=== PATIENT | female | born 1970 | race Caucasian/White ===

== ENCOUNTER 2023-04-21 13:03 | Emergency (ER) | payer BC, SELFPAY ==
[2023-04-21 13:09] VITALS: BP 112/75; PULSE 72; RESP 20; TEMP 36.2; O2SAT 97; BMI 25.8
--- NOTE | 2023-04-21 13:32 | CRLHL7_ITS ---
For Patients: As a result of the Century Cures Act, medical imaging exams and procedure reports are released immediately into your electronic medical record. You may view this report before your referring provider. If you have questions, please contact your health care provider. INDICATION: COUGH TECHNIQUE: Chest 1 views. COMPARISON: May 23, 2019 FINDINGS: Cardiovascular and mediastinum: Heart size and vasculature are normal in caliber and appearance. Lungs and pleural spaces: Lungs are clear. No sign of infiltrate. No sign of pleural effusion. No pneumothorax. Bones and soft tissues: No significant findings. IMPRESSION: No evidence of acute cardiopulmonary process. Dictated by Michele Christy MD @ 04/21/2023 3:33:01 PM (Electronically Signed)
--- NOTE | 2023-04-21 13:33 | ED.GENADULT ---
HPI - General Adult General Chief complaint: Cough Stated complaint: Sore throat, tightness in chest Time Seen by Provider: 04/21/23 13:05 History of Present Illness HPI narrative: Patient is a 52 year white female nonsmoker who has not had a history of pneumonia or chronic lung disease who presents with a cough scratchy throat over the last week. She feels it is getting worse her cough has been harsh and dry. Patient denies chest pain, does state when she coughs she feels somewhat short of breath. No leg swelling edema no bleeding or clotting problems. She has been generally healthy other than some allergies and depression and migraines. She also takes pantoprazole for stomach issues. Her O2 sat is excellent at 97% on her she is afebrile Related Data Home Medications Medication Instructions Recorded Confirmed cholecalciferol (vitamin D3) 25 25 mcg PO DAILY 04/21/23 04/21/23 mcg (1,000 unit) tablet cyclobenzaprine 5 mg tablet 5 mg PO BID PRN muscle spasm 04/21/23 04/21/23 escitalopram oxalate 20 mg tablet 20 mg PO DAILY 04/21/23 04/21/23 fluticasone propionate 50 1 spray intranasal DAILY 04/21/23 04/21/23 mcg/actuation nasal spray,suspension pantoprazole 40 mg tablet,delayed 40 mg PO DAILY 04/21/23 04/21/23 release sumatriptan succinate 50 mg tablet mg PO 04/21/23 Previous Rx's Medication Instructions Recorded doxycycline hyclate 100 mg capsule 100 mg PO BID 7 days #14 caps 04/21/23 methylprednisolone 4 mg tablets in See Rx Instructions PO .COMPLEX 04/21/23 a dose pack (Medrol (Christo)) #21 ea Allergies Allergy/AdvReac Type Severity Reaction Status Date / Time tramadol Allergy Verified 04/21/23 13:08 Review of Systems Status of ROS: Reports: 6 or more systems reviewed and unremarkable except as noted in History and below PFSH PFS Social History Smoking Status: Never smoker Do you use any of these nicotine containing products: None Second hand tobacco smoke exposure: Yes How often do you have a drink containing alcohol: never How often do you have six or more drinks on one occasion: Never AUDIT-C Alcohol total score: 0 Non-prescribed substance use: denies use service: No Exam Narrative: Exam Narrative: Objective: Vital signs unremarkable and within normal limits, no fever, O2 sat 97% on room air HEENT is unremarkable Neck is supple Chest clear no rales or wheezing preps to slightly diminished air exchange at the lung bases Pulses regula Neurologic is nonfocal, good peripheral perfusion noted. Const: Vital Signs, click to edit/add: Vital Signs - 24 hr 04/21/23 13:09 04/21/23 14:18 Temperature 97.1 F L Pulse Rate [Pulse Oximeter] 72 Respiratory Rate 20 16 Blood Pressure [Ri t Upper Arm] 112/75 Pulse Oximetry 97 97 Oxygen Delivery Me thod Room Air Course Vital Signs Vital signs: Initial Vital Signs Temperature 97.1 F L 04/21/23 13:09 Temperature Source Temporal Artery Scan 04/21/23 13:09 Pulse Rate 72 04/21/23 13:09 Pulse Rhythm Regular 04/21/23 13:09 Pulse Strength 3+ Normal 04/21/23 13:09 Respiratory Rate 20 04/21/23 13:09 Blood Pressure 112/75 04/21/23 13:09 Blood Pressure Mean 87 04/21/23 13:09 Blood Pressure Position Sitting 04/21/23 13:09 Pulse Oximetry 97 04/21/23 13:09 Oxygen Delivery Method Room Air 04/21/23 13:09 Vital Signs Temperature 97.1 F L 04/21/23 13:09 Pulse Rate 72 04/21/23 13:09 Respiratory Rate 20 04/21/23 13:09 Blood Pressure 112/75 04/21/23 13:09 Pulse Oximetry 97 04/21/23 13:09 Oxygen Delivery Method Room Air 04/21/23 13:09 Temperature 97.1 F L 04/21/23 13:09 Pulse Rate 72 04/21/23 13:09 Respiratory Rate 16 04/21/23 14:18 Blood Pressure 112/75 04/21/23 13:09 Pulse Oximetry 97 04/21/23 14:18 Oxygen Delivery Method Room Air 04/21/23 13:09 Medical Decision Making MDM Narrative Medical decision making narrative: [age] year white female without chronic lung disease who presents with 1 week history of cough chest congestion dry in nature. At this point the patient I think deserves a chest x-ray, check the viral studies. Depending on the results disposition planning. Lab Data Labs: Lab Results 04/21/23 Range/Units 13:16 SARS-CoV-2 (PCR) Negative SARS-CoV-2 (Negative) Influenza Type A (PCR) Negative PCR FLU A (Negative) Influenza Type B (PCR) Negative PCR FLU B (Negative) RSV (PCR) Negative PCR RSV (Negative) Discharge Plan Discharge Clinical Impression: Acute bronchitis Patient Disposition: Home, Self-Care Condition: Stable Additional Instructions: Recommend he try steroid medication as well as doxycycline because he had a cough over a week. Would recommend steam, fluids, symptomatic measures, recheck with regular doctor in 3-4 days as needed. Your viral studies for RSV/influenza/COVID were negative, her chest x-ray looked normal. Return to ED sooner problems concerns Activity Level: Light activity Discharge Diet: Regular Prescriptions: New methylprednisolone [Medrol (Christo)] 4 mg tablets,dose pack See Rx Instructions .ROUTE .COMPLEX Qty: 21 0RF Rx Instructions: orally per package directions doxycycline hyclate 100 mg capsule 100 mg PO BID 7 Days Qty: 14 0RF No Action sumatriptan succinate 50 mg tablet PO pantoprazole 40 mg tablet,delayed release (DR/EC) 40 mg PO DAILY fluticasone propionate 50 mcg/actuation spray,suspension 1 spray INTRANASAL DAILY escitalopram oxalate 20 mg tablet 20 mg PO DAILY cyclobenzaprine 5 mg tablet 5 mg PO BID PRN (Reason: muscle spasm) cholecalciferol (vitamin D3) 25 mcg (1,000 unit) tablet 25 mcg PO DAILY Follow Up/Referrals: Lorelei Vasquez MD [Staff Physician] - Stand Alone Forms: [email or web address] Info Instructions
[2023-04-21 14:01] LABS: PCR FLU A Negative PCR FLU A (Negative); PCR FLU B Negative PCR FLU B (Negative); PCR RSV Negative PCR RSV (Negative)
[2023-04-21 14:04] LABS: SARS PCR* Negative SARS-CoV-2 (Negative)
[2023-04-21 14:18] VITALS: RESP 16; O2SAT 97
== END 2023-04-21 14:19 | disposition home or self-care (01) ==
PROVIDERS: Emergency Provider Family Medicine; PCP Family Medicine
DX: J20.9 Acute bronchitis, unspecified (principal)
CPT/HCPCS: 71045; 87631; 99283; 99284

== ENCOUNTER 2023-06-25 13:36 | Emergency (ER) | payer BC, SELFPAY ==
[2023-06-25 13:51] VITALS: BP 109/77; PULSE 79; RESP 18; TEMP 36.4; O2SAT 99; BMI 25.8
--- NOTE | 2023-06-25 14:22 | ED.NURSE ---
patient was c/o pain in the upper arm wound so covered with 0.9% normal saline, 2x2, and wrapped with coban
--- NOTE | 2023-06-25 14:39 | ED_ITS ---
HPI - General Adult General Chief complaint: Laceration/Wound Stated complaint: lac left arm Time Seen by Provider: 06/25/23 14:11 Source: patient Mode of arrival: ambulatory Limitations: no limitations History of Present Illness HPI narrative: 52-year-old female presenting today status post a dog bite to the left upper arm. Denies other injury. States that it belongs to 1 of her neighbors, she does not know which 1. Dog did Not appear ill. She was playing with a ball when the dog try to get the ball. Related Data Home Medications Medication Instructions Recorded Confirmed cholecalciferol (vitamin D3) 25 25 mcg PO DAILY 04/21/23 04/21/23 mcg (1,000 unit) tablet cyclobenzaprine 5 mg tablet 5 mg PO BID PRN muscle spasm 04/21/23 04/21/23 escitalopram oxalate 20 mg tablet 20 mg PO DAILY 04/21/23 04/21/23 fluticasone propionate 50 1 spray intranasal DAILY 04/21/23 04/21/23 mcg/actuation nasal spray,suspension pantoprazole 40 mg tablet,delayed 40 mg PO DAILY 04/21/23 04/21/23 release sumatriptan succinate 50 mg tablet mg PO 04/21/23 Previous Rx's Medication Instructions Recorded doxycycline hyclate 100 mg capsule 100 mg PO BID 7 days #14 caps 04/21/23 methylprednisolone 4 mg tablets in See Rx Instructions PO .COMPLEX 04/21/23 a dose pack (Medrol (Christo)) #21 ea amoxicillin 875 mg-potassium 1 tab PO BID 7 days #14 tabs 06/25/23 clavulanate 125 mg tablet Allergies Allergy/AdvReac Type Severity Reaction Status Date / Time tramadol Allergy Verified 04/21/23 13:08 Review of Systems Status of ROS: Reports: 6 or more systems reviewed and unremarkable except as noted in History and below [facility] Social History Smoking Status: Smoker, status unknown Do you use any of these nicotine containing products: None Second hand tobacco smoke exposure: Yes How often do you have a drink containing alcohol: never How often do you have six or more drinks on one occasion: Never AUDIT-C Alcohol total score: 0 Non-prescribed substance use: denies use service: No Exam Narrative: Exam Narrative: Well-nourished well-developed patient in no acute distress. Alert and oriented. Answers questions appropriately. Mood and affect are appropriate. Thoughts are goal oriented and rational. No tangential or magical thinking noted. Patient speaks in full sentences without needing to catch her breath. HEENT: Normocephalic atraumatic. Pupils are equally round reactive to light. Extraocular muscles are intact. Conjunctivae are moist without any icterus noted. Moist mucous membranes. Extremities: Patient has an area of ecchymosis on the upper medial left extremity, just lateral to the axillary region, area of ecchymosis is a couple inches in diameter. At the center she has approximately a 2 cm gaping laceration that penetrates into the subcutaneous tissue, does not penetrate through the subcutaneous tissue. The remainder of the extremity is normal. Const: Vital Signs, click to edit/add: Vital Signs - 24 hr 06/25/23 13:51 Temperature 97.6 F Pulse Rate [Right Pulse Oximeter] 79 Respiratory Rate 18 Blood Pressure [Ri ght Upper Arm] 109/77 Pulse Oximetry 99 Oxygen Delivery Me thod Room Air Course Course ED Course: Area was anesthetized. Wound was irrigated and explored. Two sutures with 3-0 Ethilon applied. Vital Signs Vital signs: Initial Vital Signs Temperature 97.6 F 06/25/23 13:51 Temperature Source Temporal Artery Scan 06/25/23 13:51 Pulse Rate 79 06/25/23 13:51 Respiratory Rate 18 06/25/23 13:51 Blood Pressure 109/77 06/25/23 13:51 Blood Pressure Mean 87 06/25/23 13:51 Blood Pressure Position Sitting 06/25/23 13:51 Pulse Oximetry 99 06/25/23 13:51 Oxygen Delivery Method Room Air 06/25/23 13:51 Vital Signs Temperature 97.6 F 06/25/23 13:51 Pulse Rate 79 06/25/23 13:51 Respiratory Rate 18 06/25/23 13:51 Blood Pressure 109/77 06/25/23 13:51 Pulse Oximetry 99 06/25/23 13:51 Oxygen Delivery Method Room Air 06/25/23 13:51 Temperature 97.6 F 06/25/23 13:51 Pulse Rate 79 06/25/23 13:51 Respiratory Rate 18 06/25/23 13:51 Blood Pressure 109/77 06/25/23 13:51 Pulse Oximetry 99 06/25/23 13:51 Oxygen Delivery Method Room Air 06/25/23 13:51 Medical Decision Making MDM Narrative Medical decision making narrative: 52-year-old female status post dog bite. We discussed wound hygiene, signs symptoms of infection, reasons to return for follow-up. Suture removal in approximately 1 week. Will put her on antibiotics at this time and update her tetanus shot. Discharge Plan Discharge Clinical Impression: Laceration, Dog bite Patient Disposition: Home, Self-Care Condition: Stable Additional Instructions: Keep wound clean and dry. Okay to shower like you normally would. Take all antibiotics as prescribed- uptake them up and start today. If redness around the bite increases or spreads up or down the arm, return to the ER right away. Sutures should be removed in approximately 1 week in the clinic with your primary care provider. Prescriptions: New amoxicillin-pot clavulanate 875-125 mg tablet 1 tab PO BID 7 Days Qty: 14 0RF No Action sumatriptan succinate 50 mg tablet PO pantoprazole 40 mg tablet,delayed release (DR/EC) 40 mg PO DAILY fluticasone propionate 50 mcg/actuation spray,suspension 1 spray INTRANASAL DAILY escitalopram oxalate 20 mg tablet 20 mg PO DAILY cyclobenzaprine 5 mg tablet 5 mg PO BID PRN (Reason: muscle spasm) cholecalciferol (vitamin D3) 25 mcg (1,000 unit) tablet 25 mcg PO DAILY methylprednisolone [Medrol (Christo)] 4 mg tablets,dose pack See Rx Instructions .ROUTE .COMPLEX Qty: 21 0RF Rx Instructions: orally per package directions doxycycline hyclate 100 mg capsule 100 mg PO BID 7 Days Qty: 14 0RF Follow Up/Referrals: Penny Winston MD [Primary Care Provider] - Stand Alone Forms: [employer] Info Instructions
--- NOTE | 2023-06-25 14:41 | ED.NURSE ---
Pt reported later that wound is due to a dog bite. She states this dog was a neighborhood dog, but is unsure who the dog belongs to. She stated the dog is UTD on all vaccinations. Call placed to [place] [employer] to repot bite. PD stated they will send an officer to speak with patient.
[2023-06-25] MEDS: lidocaine HCL 2 % MULTIDOSE 20 ML VIAL INJECTION (14:44)
[2023-06-25] MEDS: TETANUS/DIPHTH/PERTUSSIS 0.5 ML SYRINGE IM (14:50)
--- NOTE | 2023-06-25 14:55 | ED.NURSE ---
PD in room with patient
== END 2023-06-25 15:00 | disposition home or self-care (01) ==
PROVIDERS: Emergency Provider Family Medicine; PCP Family Medicine
DX: S51.852A Open bite of left forearm, initial encounter (principal); W54.0XXA Bitten by dog, initial encounter; Z23 Encounter for immunization
CPT/HCPCS: 12001; 90471; 90715; 99283; 99284

== ENCOUNTER 2023-11-14 23:14 | Emergency (ER) | payer BC, SELFPAY ==
[2023-11-14 23:22] VITALS: BP 129/85; PULSE 70; RESP 16; TEMP 36.4; O2SAT 97; BMI 27.1
--- NOTE | 2023-11-14 23:35 | ED_ITS ---
HPI - General Adult General Chief complaint: Extremity Pain/Injury, Lower Stated complaint: Swollen L foot. Time Seen by Provider: 11/14/23 23:29 Source: patient Mode of arrival: ambulatory Limitations: no limitations History of Present Illness HPI narrative: 53-year-old female coming in today complaining of left foot pain. Pain started 2 days ago. Pain is located at the base of the big toe. Sometimes she feels sharp pain in the 2nd and 3rd toes as well but the majority of the discomfort is constant and again is at the base of the big toe. She states that it is swollen, she denies any redness. She states that it hurts to walk but she has been getting around doing her daily activities. She denies any fevers or chills. She states that she woke up on Wednesday morning and had this pain, denies any new physical activity or trauma on . Denies eating any red meter alcohol on . No nausea or vomiting. No pain in other joints or extremities. Related Data Home Medications ?Medication ?Instructions ?Recorded ?Confirmed cholecalciferol (vitamin D3) 25 25 mcg PO DAILY 04/21/23 04/21/23 mcg (1,000 unit) tablet cyclobenzaprine 5 mg tablet 5 mg PO BID PRN muscle spasm 04/21/23 04/21/23 escitalopram oxalate 20 mg tablet 20 mg PO DAILY 04/21/23 04/21/23 fluticasone propionate 50 1 spray intranasal DAILY 04/21/23 04/21/23 mcg/actuation nasal spray,suspension pantoprazole 40 mg tablet,delayed 40 mg PO DAILY 04/21/23 04/21/23 release sumatriptan succinate 50 mg tablet mg PO 04/21/23 Previous Rx's ?Medication ?Instructions ?Recorded doxycycline hyclate 100 mg capsule 100 mg PO BID 7 days #14 caps 04/21/23 methylprednisolone 4 mg tablets in See Rx Instructions PO .COMPLEX 04/21/23 a dose pack (Medrol (Christo)) #21 ea amoxicillin 875 mg-potassium 1 tab PO BID 7 days #14 tabs 06/25/23 clavulanate 125 mg tablet Allergies Allergy/AdvReac Type Severity Reaction Status Date / Time tramadol Allergy Verified 04/21/23 13:08 Review of Systems Status of ROS: Reports: 10 or more systems reviewed and unremarkable except as noted in History and below PFSH PFSH Social History Smoking Status: Smoker, status unknown Do you use any of these nicotine containing products: None Second hand tobacco smoke exposure: Yes How often do you have a drink containing alcohol: never How often do you have six or more drinks on one occasion: Never AUDIT-C Alcohol total score: 0 Non-prescribed substance use: denies use service: No Exam Narrative: Exam Narrative: Well-nourished well-developed patient in no acute distress. Alert and oriented. Answers questions appropriately. Mood and affect are appropriate. Thoughts are goal oriented and rational. No tangential or magical thinking noted. Patient speaks in full sentences without needing to catch her breath. HEENT: Normocephalic atraumatic. Pupils are equally round reactive to light. Extraocular muscles are intact. Conjunctivae are moist without any icterus noted. Moist mucous membranes. Extremities: Left foot does have swelling located at the base of the great toe. She has tenderness to palpation right in that area. It is not erythematous. She has no pain with palpation the remainder of the toes. She has no pain with palpation on the plantar surface of the forefoot, no pain at the arch or heel of the foot. No pain with motion at the ankle. Const: Vital Signs, click to edit/add: Vital Signs - 24 hr 11/14/23 23:22 Temperature 97.6 F Pulse Rate [Pulse Oximeter] 70 Respiratory Rate 16 Blood Pressure [Ri ght Upper Arm] 129/85 Pulse Oximetry 97 Oxygen Delivery Me thod Room Air Course Vital Signs Vital signs: Initial Vital Signs Temperature 97.6 F 11/14/23 23:22 Temperature Source Temporal Artery Scan 11/14/23 23:22 Pulse Rate 70 11/14/23 23:22 Respiratory Rate 16 11/14/23 23:22 Blood Pressure 129/85 11/14/23 23:22 Blood Pressure Mean 99 11/14/23 23:22 Blood Pressure Position Sitting 11/14/23 23:22 Pulse Oximetry 97 11/14/23 23:22 Oxygen Delivery Method Room Air 11/14/23 23:22 Vital Signs Temperature 97.6 F 11/14/23 23:22 Pulse Rate 70 11/14/23 23:22 Respiratory Rate 16 11/14/23 23:22 Blood Pressure 129/85 11/14/23 23:22 Pulse Oximetry 97 11/14/23 23:22 Oxygen Delivery Method Room Air 11/14/23 23:22 Temperature 97.6 F 11/14/23 23:22 Pulse Rate 70 11/14/23 23:22 Respiratory Rate 16 11/14/23 23:22 Blood Pressure 129/85 11/14/23 23:22 Pulse Oximetry 97 11/14/23 23:22 Oxygen Delivery Method Room Air 11/14/23 23:22 Medical Decision Making MDM Narrative Medical decision making narrative: 53-year-old female with pain of the foot, the base of the big toe. Differential diagnoses includes gout, arthritis, trauma, sprain. I am going to put her on indomethacin for the next several days to see if this makes a difference. I would like her to follow up with her primary care provider this coming week. She can certainly return to the ER if the area becomes red or she develops any systemic symptoms. Patient was in agreement and had no other questions. Discharge Plan Discharge Clinical Impression: Acute foot pain Patient Disposition: Home, Self-Care Condition: Stable Additional Instructions: Potential causes of your pain include arthritis, gout, sprain. At this time we will treat you with an anti-inflammatory that will treat pain and gout at the same time. If you feel like you are getting worse instead of better or if your foot becomes bright red, you should return to the ER. Otherwise I recommend you follow-up with your primary care provider this coming week. In the meantime elevate as much as possible throughout the day and ice as needed, do not apply ice directly to skin. Prescriptions: No Action sumatriptan succinate 50 mg tablet PO pantoprazole 40 mg tablet,delayed release (DR/EC) 40 mg PO DAILY fluticasone propionate 50 mcg/actuation spray,suspension 1 spray INTRANASAL DAILY escitalopram oxalate 20 mg tablet 20 mg PO DAILY cyclobenzaprine 5 mg tablet 5 mg PO BID PRN (Reason: muscle spasm) cholecalciferol (vitamin D3) 25 mcg (1,000 unit) tablet 25 mcg PO DAILY methylprednisolone [Medrol (Christo)] 4 mg tablets,dose pack See Rx Instructions .ROUTE .COMPLEX Qty: 21 0RF Rx Instructions: orally per package directions doxycycline hyclate 100 mg capsule 100 mg PO BID 7 Days Qty: 14 0RF amoxicillin-pot clavulanate 875-125 mg tablet 1 tab PO BID 7 Days Qty: 14 0RF Follow Up/Referrals: Penny Winston MD [Primary Care Provider] - Stand Alone Forms: [employer] Info Instructions
[2023-11-14] MEDS: KETOROLAC 30 MG/ML inj 60 MG IM (23:39)
== END 2023-11-14 23:50 | disposition home or self-care (01) ==
LOC: ED 23:41
PROVIDERS: Emergency Provider Family Medicine; PCP Family Medicine
DX: M79.672 Pain in left foot (principal)
CPT/HCPCS: 96372; 99283; J1885

== ENCOUNTER 2023-12-14 18:20 | Emergency (ER) | payer MEDICAID, SELFPAY ==
[2023-12-14 18:55] VITALS: BP 116/68; PULSE 70; RESP 18; TEMP 36.3; O2SAT 100
--- NOTE | 2023-12-14 19:57 | CRLHL7_ITS ---
For Patients: As a result of the Century Cures Act, medical imaging exams and procedure reports are released immediately into your electronic medical record. You may view this report before your referring provider. If you have questions, please contact your health care provider. INDICATION: Ankle Injury TECHNIQUE: Ankle radiograph 3 views left COMPARISON: 10/18/2022 FINDINGS: Bone: No acute fractures or aggressive bone lesions are identified. A small plantar calcaneal spur and small enthesophyte are noted. Joint: The ankle mortise joint and the visualized hindfoot joints are unremarkable in appearance. No significant ankle effusion is seen. Soft tissue: The Kager fat pad and the Achilles` tendon are normal in appearance. No radiopaque foreign bodies are seen. IMPRESSION: 1. No acute osseous injuries or abnormalities are noted. Dictated by Stepan Pat MD @ 12/14/2023 8:54:44 PM Dictated by: Stepan Pat MD @ 12/14/2023 20:54:48 (Electronically Signed)
--- NOTE | 2023-12-14 19:57 | ED.FALL ---
HPI - Fall General Chief Complaint: Fall/Minor Trauma Stated Complaint: fall on back - difficulty breathing Time Seen by Provider: 12/14/23 19:43 History of Present Illness HPI Narrative: This 53-year-old female comes in with injury to her left ankle that occurred yesterday and some discomfort in her upper back from a fall that occurred today. Yesterday she twisted her left ankle and has pain and swelling with ecchymosis on the lateral aspect. She has been wearing of brace around this ankle in continues to ambulate on it. Today she was walking her 2 dogs and because of her ankle injury she was not is steady. One of the dog saw a dock and ran pulling her backwards to the ground. She did not have loss of consciousness. She was able to get up and ambulate and comes in now perhaps 8 or 10 hours later because of left ankle pain and worsening pain in her upper back. Related Data Home Medications ?Medication ?Instructions ?Recorded ?Confirmed cholecalciferol (vitamin D3) 25 25 mcg PO DAILY 04/21/23 04/21/23 mcg (1,000 unit) tablet cyclobenzaprine 5 mg tablet 5 mg PO BID PRN muscle spasm 04/21/23 04/21/23 escitalopram oxalate 20 mg tablet 20 mg PO DAILY 04/21/23 04/21/23 fluticasone propionate 50 1 spray intranasal DAILY 04/21/23 04/21/23 mcg/actuation nasal spray,suspension pantoprazole 40 mg tablet,delayed 40 mg PO DAILY 04/21/23 04/21/23 release sumatriptan succinate 50 mg tablet mg PO 04/21/23 Previous Rx's ?Medication ?Instructions ?Recorded doxycycline hyclate 100 mg capsule 100 mg PO BID 7 days #14 caps 04/21/23 methylprednisolone 4 mg tablets in See Rx Instructions PO .COMPLEX 04/21/23 a dose pack (Medrol (Christo)) #21 ea amoxicillin 875 mg-potassium 1 tab PO BID 7 days #14 tabs 06/25/23 clavulanate 125 mg tablet indomethacin 50 mg capsule 50 mg PO TID #20 caps 11/15/23 Allergies Allergy/AdvReac Type Severity Reaction Status Date / Time tramadol Allergy Verified 04/21/23 13:08 Review of Systems Status of ROS: Reports: 10 or more systems reviewed and unremarkable except as noted in History and below Narrative: Constitutional: No fevers, no weight gain or loss. Eyes: No discharge. No vision changes. HENT: No congestion, no sore throat, no ear pain. Cardiovascular: No chest pain, no palpitations. Respiratory: No shortness of breath, no wheezes, no cough. Gastrointestinal: No abdominal pain, no vomiting, no diarrhea. Genitourinary: No dysuria, no hematuria. Musculoskeletal: Left ankle injury as described above. Skin: No rashes, no pruritis. Neurological: No dizziness, weakness, sensory change, speech change. Endo/Heme/Allergies: No bruising or bleeding. No polydipsia. Pysch: no suicidality, no anxiety, no insomnia. All other systems reviewed and are negative. [facility] Social History Smoking Status: Smoker, status unknown Do you use any of these nicotine containing products: None Second hand tobacco smoke exposure: Yes How often do you have a drink containing alcohol: never How often do you have six or more drinks on one occasion: Never AUDIT-C Alcohol total score: 0 Non-prescribed substance use: denies use service: No Exam Narrative: Exam Narrative: Constitutional: Well-developed, well-nourished, no acute distress. HEENT: Normocephalic, atraumatic. Neck: Normal range of motion. Nontender. Supple. No midline tenderness when palpating along the neck and the spine. Heart: Regular. No murmurs. Normal rate. Intact distal pulses. Lungs: Clear to auscultation. No chest discomfort. No wheezes, rhonchi, or rales. Abdomen: Normal bowel sounds. Nontender. No rebound tenderness. Genitalia: Deferred. Back: No midline tenderness. Normal range of motion. Extremities: Normal range of motion. Left ankle has swelling on the lateral aspect with ecchymosis. There is no joint effusion. Skin: Intact. No rash. Warm. No erythema or pallor. Neurologic: No altered sensation. No weakness. Alert and oriented. Psychiatric: No suicidality. No anxiety or depression. No insomnia. Nursing notes and vitals signs are reviewed. Const: Vital Signs, click to edit/add: Vital Signs - 24 hr 12/14/23 18:55 Temperature 97.4 F L Pulse Rate [Left P ulse Oximeter] 70 Respiratory Rate 18 Blood Pressure [Ri ght Upper Arm] 116/68 Pulse Oximetry 100 Oxygen Delivery Me thod Room Air Course Vital Signs Vital signs: Initial Vital Signs Temperature 97.4 F L 12/14/23 18:55 Temperature Source Temporal Artery Scan 12/14/23 18:55 Pulse Rate 70 12/14/23 18:55 Pulse Rhythm Regular 12/14/23 18:55 Respiratory Rate 18 12/14/23 18:55 Blood Pressure 116/68 12/14/23 18:55 Blood Pressure Mean 84 12/14/23 18:55 Blood Pressure Position Sitting 12/14/23 18:55 Pulse Oximetry 100 12/14/23 18:55 Oxygen Delivery Method Room Air 12/14/23 18:55 Vital Signs Temperature 97.4 F L 12/14/23 18:55 Pulse Rate 70 12/14/23 18:55 Respiratory Rate 18 12/14/23 18:55 Blood Pressure 116/68 12/14/23 18:55 Pulse Oximetry 100 12/14/23 18:55 Oxygen Delivery Method Room Air 12/14/23 18:55 Temperature 97.4 F L 12/14/23 18:55 Pulse Rate 70 12/14/23 18:55 Respiratory Rate 18 12/14/23 18:55 Blood Pressure 116/68 12/14/23 18:55 Pulse Oximetry 100 12/14/23 18:55 Oxygen Delivery Method Room Air 12/14/23 18:55 MDM - Fall MDM Narrative Medical decision making narrative: This 53-year-old female comes in with injury to her left ankle from yesterday and then a fall where she has some upper and mid back pain that occurred this morning. She arrives with normal vital signs. She has been ambulating on her ankle injury but does have swelling on the lateral malleolus with some ecchymosis. X-ray of the ankle is obtained and by my review shows no sign of fracture or dislocation. The patient has normal exam otherwise. She is complaining of some diffuse pain across her mid and upper back but does not have any abnormal exam findings and has no midline tenderness when palpating along the spine. Her lungs sound clear bilaterally and she has normal vital signs. The patient did receive an Tom wrap for her ankle and I did provide [facility] prescriptions for Toradol and Flexeril. She states that she has a cane that can not be used if needed. Discharge Plan Discharge Clinical Impression: Ankle sprain, Back contusion Patient Disposition: Home, Self-Care Condition: Stable Additional Instructions: Take medication as needed and indicated. Increase activity as tolerated. Follow up with MD return if worsening. Prescriptions: No Action sumatriptan succinate 50 mg tablet PO pantoprazole 40 mg tablet,delayed release (DR/EC) 40 mg PO DAILY fluticasone propionate 50 mcg/actuation spray,suspension 1 spray INTRANASAL DAILY escitalopram oxalate 20 mg tablet 20 mg PO DAILY cyclobenzaprine 5 mg tablet 5 mg PO BID PRN (Reason: muscle spasm) cholecalciferol (vitamin D3) 25 mcg (1,000 unit) tablet 25 mcg PO DAILY methylprednisolone [Medrol (Christo)] 4 mg tablets,dose pack See Rx Instructions .ROUTE .COMPLEX Qty: 21 0RF Rx Instructions: orally per package directions doxycycline hyclate 100 mg capsule 100 mg PO BID 7 Days Qty: 14 0RF amoxicillin-pot clavulanate 875-125 mg tablet 1 tab PO BID 7 Days Qty: 14 0RF indomethacin 50 mg capsule 50 mg PO TID Qty: 20 0RF Rx Instructions: administer with food or milk. Start taking 3 times per day and then wean off as pain improves. Follow Up/Referrals: Penny Winston MD [Primary Care Provider] - Stand Alone Forms: [employer] Info Instructions
== END 2023-12-14 21:49 | disposition home or self-care (01) ==
PROVIDERS: Emergency Provider Emergency Medicine Emergency Medical Services; PCP Family Medicine
DX: M25.572 Pain in left ankle and joints of left foot (principal); X50.1XXA Overexertion from prolonged static or awkward postures, initial encounter
CPT/HCPCS: 73610; 99283; 99284

== ENCOUNTER 2024-08-27 10:57 | Emergency (ER) | payer SELFPAY ==
[2024-08-27 11:06] VITALS: BP 150/85; PULSE 65; RESP 24; TEMP 36.1; O2SAT 97; BMI 25.8
[2024-08-27] MEDS: 0.9 % SODIUM CHLORIDE 1000 ml 1,000 ML 6000 ML IV (11:56)
[2024-08-27] MEDS: LORazepam 2 MG/ML inj 1 MG IVP (11:56)
[2024-08-27] MEDS: diphenhydrAMINE 50 MG/ML inj 25 MG IVP (11:57)
[2024-08-27] MEDS: METOCLOPRAMIDE HCL 10 MG in 0.9 % SODIUM CHLORIDE 100 ml 100 ML 306 MG IV (11:57)
[2024-08-27] MEDS: KETOROLAC 30 MG/ML inj IVP (11:57)
--- NOTE | 2024-08-27 11:57 | ED.GENADULT ---
HPI - General Adult General Chief complaint: Headache/Migraine Stated complaint: migraine Time Seen by Provider: 08/27/24 11:03 History of Present Illness HPI narrative: Patient is a 53-year-old female has had a longstanding history of migraines. She reports a lot of psychosocial stress as well. She has had no fevers chills but has had a headache the last couple of days. She reports that the top of her head. She is photophobic as per typical migraines. She reports she has had some stress significantly since she apparently had children taken away from her. She reports that she has felt shaky and that her arms have been slapping. She has no chest pain, breathing problem no thunderclap headache. No fevers as mention. She is allergic to tramadol. Related Data Home Medications ?Medication ?Instructions ?Recorded ?Confirmed cholecalciferol (vitamin D3) 25 25 mcg PO DAILY 04/21/23 04/21/23 mcg (1,000 unit) tablet cyclobenzaprine 5 mg tablet 5 mg PO BID PRN muscle spasm 04/21/23 04/21/23 escitalopram oxalate 20 mg tablet 20 mg PO DAILY 04/21/23 04/21/23 fluticasone propionate 50 1 spray intranasal DAILY 04/21/23 04/21/23 mcg/actuation nasal spray,suspension pantoprazole 40 mg tablet,delayed 40 mg PO DAILY 04/21/23 04/21/23 release sumatriptan succinate 50 mg tablet mg PO 04/21/23 Previous Rx's ?Medication ?Instructions ?Recorded doxycycline hyclate 100 mg capsule 100 mg PO BID 7 days #14 caps 04/21/23 methylprednisolone 4 mg tablets in See Rx Instructions PO .COMPLEX 04/21/23 a dose pack (Medrol (Christo)) #21 ea amoxicillin 875 mg-potassium 1 tab PO BID 7 days #14 tabs 06/25/23 clavulanate 125 mg tablet indomethacin 50 mg capsule 50 mg PO TID #20 caps 11/15/23 Allergies Allergy/AdvReac Type Severity Reaction Status Date / Time tramadol Allergy Verified 04/21/23 13:08 Review of Systems Status of ROS: Reports: 6 or more systems reviewed and unremarkable except as noted in History and below PFSH PFS Social History Smoking Status: Smoker, status unknown Do you use any of these nicotine containing products: None Second hand tobacco smoke exposure: Yes How often do you have a drink containing alcohol: never How often do you have six or more drinks on one occasion: Never AUDIT-C Alcohol total score: 0 Non-prescribed substance use: denies use service: No Exam Narrative: Exam Narrative: Objective: The patient is keeping her eyes closed, her vital signs look largely unremarkable and slightly hypertensive No facial asymmetry Unable to get her to remove her glasses and she has pupils are equal actual like reaction to light extraocular movements intact Neurologic in upper lower extremities grossly nonfocal she is moving all extremities in fact she actually is shaking and flapping her hands she is able to control this and stop the when she wishes. Neurologic is nonfocal normal strength sensation. Const: Vital Signs, click to edit/add: Vital Signs - 24 hr 08/27/24 11:06 Temperature 96.9 F L Pulse Rate [Left R adial] 65 Respiratory Rate 24 Blood Pressure [Ri ght Upper Arm] 150/85 H Pulse Oximetry 97 Oxygen Delivery Me thod Room Air Course Vital Signs Vital signs: Initial Vital Signs Temperature 96.9 F L 08/27/24 11:06 Temperature Source Temporal Artery Scan 08/27/24 11:06 Pulse Rate 65 08/27/24 11:06 Pulse Rhythm Regular 08/27/24 11:06 Respiratory Rate 24 08/27/24 11:06 Blood Pressure 150/85 H 08/27/24 11:06 Blood Pressure Mean 106 H 08/27/24 11:06 Pulse Oximetry 97 08/27/24 11:06 Oxygen Delivery Method Room Air 08/27/24 11:06 Vital Signs Temperature 96.9 F L 08/27/24 11:06 Pulse Rate 65 08/27/24 11:06 Respiratory Rate 24 08/27/24 11:06 Blood Pressure 150/85 H 08/27/24 11:06 Pulse Oximetry 97 08/27/24 11:06 Oxygen Delivery Method Room Air 08/27/24 11:06 Temperature 96.9 F L 08/27/24 11:06 Pulse Rate 65 08/27/24 11:06 Respiratory Rate 24 08/27/24 11:06 Blood Pressure 150/85 H 08/27/24 11:06 Pulse Oximetry 97 08/27/24 11:06 Oxygen Delivery Method Room Air 08/27/24 11:06 Medications Administered Medications: Discontinued Medications Generic Name Dose Route Start Last Admin Trade Name Aj PRN Reason Stop Dose Admin Diphenhydramine HCl 25 mg 08/27/24 11:34 08/27/24 11:57 Diphenhydramine 50 Mg/Ml Inj IVP 08/27/24 11:35 25 mg ONCE ONE Administration Sodium Chloride 1,000 mls @ 6,000 mls/hr 08/27/24 11:45 08/27/24 11:56 0.9 % Sodium Chloride 1000 Ml IV 08/27/24 11:54 6,000 mls/hr .Q10M [place] Administration Metoclopramide HCl 10 mg/ 102 mls @ 306 mls/hr 08/27/24 11:34 08/27/24 11:57 Sodium Chloride IV 08/27/24 11:35 306 mls/hr ONCE ONE Administration Ketorolac Tromethamine 30 mg 08/27/24 11:34 08/27/24 11:57 Ketorolac 30 Mg/Ml Inj IVP 08/27/24 11:35 30 mg ONCE ONE Administration Lorazepam 1 mg 08/27/24 11:34 08/27/24 11:56 Lorazepam 2 Mg/Ml Inj IVP 08/27/24 11:35 1 mg ONCE ONE Administration Medical Decision Making [facility] Narrative Medical decision making narrative: [age] white female with history of migraine headaches with significant psychosocial overlay, patient will get IV fluid, IV Ativan IV Toradol Reglan and Benadryl. Hopefully this will alleviate some of her symptoms and some of her anxiety that is clearly associated with her headache. She has had these multiple times in this is typical for her. Will do further workup pending her response. She is comfortable this plan. Discharge Plan Discharge Clinical Impression: Migraine, Anxiety Patient Disposition: Home w/ Parent or Adult Condition: Improved Additional Instructions: Fluids, rest, a refill your headache medicine for home, recheck with regular doctor as needed. Return as needed. Activity Level: Light activity Discharge Diet: Regular Prescriptions: No Action sumatriptan succinate 50 mg tablet PO pantoprazole 40 mg tablet,delayed release (DR/EC) 40 mg PO DAILY fluticasone propionate 50 mcg/actuation spray,suspension 1 spray INTRANASAL DAILY escitalopram oxalate 20 mg tablet 20 mg PO DAILY cyclobenzaprine 5 mg tablet 5 mg PO BID PRN (Reason: muscle spasm) cholecalciferol (vitamin D3) 25 mcg (1,000 unit) tablet 25 mcg PO DAILY methylprednisolone [Medrol (Christo)] 4 mg tablets,dose pack See Rx Instructions .ROUTE .COMPLEX Qty: 21 0RF Rx Instructions: orally per package directions doxycycline hyclate 100 mg capsule 100 mg PO BID 7 Days Qty: 14 0RF amoxicillin-pot clavulanate 875-125 mg tablet 1 tab PO BID 7 Days Qty: 14 0RF indomethacin 50 mg capsule 50 mg PO TID Qty: 20 0RF Rx Instructions: administer with food or milk. Start taking 3 times per day and then wean off as pain improves. Follow Up/Referrals: Penny Winston MD [Primary Care Provider] - Stand Alone Forms: [facility] Info Instructions
--- OUTSIDE RECORDS SUMMARY | 2024-08-27 12:03 | XMS_ITS | Clinical Summary ---
Author Organization [employer] [facility] Address [address] [place] [id number] Care Team Providers Care Voucher Clerk Name Role Phone Penny Winston MD Primary Care Provi debbie Allergies Active Allergy Reactions Criticality Noted Date Comments Tramadol Hives,Itching 05/22/2013 Medications medication order composer Sugar Merary twice daily 0 2 Active aspirin (ECOTRIN) 81 mg enteric coated tablet Take 1 Tablet (81 mg) by mouth once daily with a meal. 0 2 Active SUMAtriptan (IMITREX) 50 mg tabletIndications:M igraine syndrome TAKE 1 TABLET BY MOUTH AT ONSET OF HEADACHE NEEDED. MAY REPEAT EVERY 2 HOURS NEEDED. MAX DAILY DOSE IS 4 12 Tablet 3 4 Active sucralfate (CARAFATE) 1 gram tabletIndications:C hronic GERD Take 1 Tablet (1 g) by mouth four times daily before meals and at bedtime. 120 Tablet 4 Active fluticasone (50 mcg per actuation) nasal solution (FLONASE)Indication s:Chronic rhinosinusitis Inhale 2 Sprays to both nostrils once daily. 16 g 5 4 Active cyclobenzaprine (FLEXERIL) 5 mg tabletIndications:C hronic right SI joint pain Take 1 Tablet (5 mg) by mouth 2 times daily if needed for Muscle Spasm. 60 Tablet 5 4 Active cholecalciferol (VITAMIN D3) 1,000 unit tabletIndications:V itamin D deficiency Take 1 Tablet (1,000 units) by mouth once daily. 90 Tablet 3 4 Active escitalopram oxalate (LEXAPRO) 20 mg tabletIndications:D epression, unspecified depression type Take 1 Tablet (20 mg) by mouth once daily. 90 Tablet 3 4 Active pantoprazole (PROTONIX) 40 mg delayed-release tabletIndications:U pper GI bleeding Take 1 Tablet (40 mg) by mouth once daily. 90 Tablet 3 4 Active Active Problems Problem Noted Date Diagnosed Date Anxiety 09/24/2021 Depression 09/24/2021 Fatty infiltration of liver 09/24/2021 GERD (gastroesophageal reflux disease) 2 Vitamin D deficiency 09/24/2021 Hx of total hysterectomy wit h removal of both tubes and ovaries 09/24/2021 Premature menopause on HRT 09/24/2021 Cervical radiculopathy due to intervertebral dis c disorder 02/26/2015 Gastrointestinal hemorrhage Resolved Problems Problem Noted Date Diagnosed Date Resolved Date Tubal ligation status 09/24/20212022 Immunizations Immunization Administration Dates Next Due COVID-19 VACCINE SPIKEVAX (M ODERNA 50MCG/0.5ML) 12YO+ PFS 07/13/2023 Influenza, IIV4 07/13/2023,02/14/2021 Td, Preservative Free (age >= 7 Years) 6 Tdap 06/25/2023,09/17/2015 Social History Tobacco Use Types Packs/Day Years Used Date Smoking Tobacco: Passive Smo ke Exposure - Never Smoker Smokeless Tobacco: Never Tobacco Cessation:Counseling Given: Yes Alcohol Use Standard Drinks/Week Comments Not Currently 0 (1 standard drink = 0.6 oz pur e alcohol) PHQ-2 Answer Date Recorded PHQ-2 TOTAL SCORE 4 03/10/2023 Social Connections Answer Date Recorded Do you often feel lonely or isolated from those around you? 0 07/13/2023 Financial Resource Strain Answer Date R ecorded Difficulty of Paying Living Expenses 3 07/13/2023 Difficulty of Paying Living Expenses Not on file 07/13/2023 Food Insecurity Answer Date Recorded Do you worry your food will run out before you are able to buy more? 1 07/13/2023 Transportation Needs Answer Date Record ed Does lack of transportation keep you from medica l appointments? 1 07/13/2023 Does lack of transportation keep you from work, meetings or getting things that you need? 1 07/13/2023 Housing Stability Answer Date Recorded What is your housing situation today? 1 07/13/2023 Utilities Answer Date Recorded Do you have trouble paying f or utilities (for example, heat, electricity, water, phone)? 1 07/13/2023 Comments No Sex and Gender Information Value Date Recorded Sex Assigned at Not on file Legal Sex Female 1:18 PM LAST TRIMMER Gender Identity Not on file Sexual Orientation Not on file Obstetrics History Last Filed Vital Signs Vital Sign Reading Time Taken Comments Blood Pressure 108/68 07/13/2023 10:48 AM LAST TRIMMER Pulse 68 07/13/2023 10:48 AM LAST TRIMMER Temperature 36.7 C (98.1 F) 10/22/2022 7:38 AM CDT Respiratory Rate 14 07/13/2023 10:48 AM LAST TRIMMER Oxygen Saturation 97% 10/22/2022 7:38 AM CDT Inhaled Oxygen Concentration - - Weight 82.1 kg (181 lb) 07/13/2023 10:48 AM LAST TRIMMER Height 167.6 cm (5' 6) 10/22/2022 7:37 AM CDT Body Mass Index 29.21 10/22/2022 7:37 AM CDT Plan of Treatment Health Maintenance Due Date Last Done Comments HIV for age 15-65 1985 Hepatitis C screening for age 18-79 1988 Mammogram for age 45-75 10/22/2015 Pneumococcal series for age 50+ (1 of 1 - PCV) 2020 Zoster (shingles) series for age 50+ (1 of 2) 2020 BMI (ht and wt on same day) for age 18+ 03/13/2023 03/13/2022, 01/06/2022, 09/24/2021 COVID-19 vaccine series ( season) 2024 07/13/2023, 08/31/2020, 08/10/2020 Depression screening for age 12+ 03/10/2024 03/10/2023, 12/31/2022, 12/03/2021 Influenza Vaccine (Season Ended) 2025 07/13/19 24, 02/14/2021 Lipids for age 45-75 09/24/2026 09/24/2021 Colonoscopy through age 75 04/22/2032 04/22/2022 Tetanus booster 06/25/2033 06/25/2023, 08/23, 09/17/2015 Tdap Completed 06/25/2023, 09/17/2015 Procedures Procedure Name Priority Date/Time Associated Diagnosis Comments COLONOSCOPY 04/22/2022 12:33 PM LAST TRIMMER LIPID PANEL W REFLEX MEASURED LDL Routine 09/24/2021 11:44 AM CDT Chest pain on exertion Family history of early CAD from Last 3 Months or Most Recently Relevant to Health Maintenance Results * COLONOSCOPY (04/22/2022 12:33 PM LAST TRIMMER) 04/22/2022 12:3 3 PM LAST TRIMMER Narrative Transcriptions Brenda De Leon DO - 04/22/2022 5:46 PM CST Patient Name: Narda Mark Procedure Date: 04/22/2022 Gender: Female Date of : 1970 Admit Type: Ambulatory Procedure: Colonoscopy Proceduralist: Brenda De Leon MD Indications/Pre-Op Diagnosis: Gastrointestinal bleeding Medications: Propofol per Anesthesia, MonitoredAnesthesia Care Procedure Description: The patient had risks, benefits and alternatives explained to andgave informed consent. The patient had a stable cardiopulmonary status and judged an adequate candidate for conscious sedation. The endoscope -[id number] was passed through the anus andadvanced to the cecum, identified by appendiceal orifice and ileocecal valve.The colonoscopy was performed without difficulty. The patient toleratedthe procedure well. The quality of the bowel preparation was good. The ileocecal valve, appendiceal orifice, and rectum were photographed. Complications: No immediate complications. Estimated blood loss: Minimal. Estimated Blood Loss & Specimen: Estimated blood loss was minimal. Specimen collected - Yes and sent to Laboratory Findings: An area of moderately congested mucosa was found in the sigmoidcolon. This was biopsied with a cold forceps for histology. Verification of patient identification for the specimen was done. Estimated bloodloss was minimal. The exam was otherwise without abnormality. Skin tags were found on perianal exam. Impressions/Post-Op Diagnosis: - Congested mucosa in the sigmoid colon. Biopsied. - The examination was otherwise normal. - Perianal skin tags found on perianal exam. Recommendation: - Discharge patient to home (ambulatory). - Resume previous diet today. - Continue present medications. - Await pathology results. - Repeat colonoscopy in 5-10 years for surveillance based onpathology results. Brenda De Leon MD 04/22/2022 5:46:26 PM This report has been signed electronically. Note Initiated On: 04/22/2022 12:33 PM us Brenda De Leon DO PROCEDURE ORD Final Res ult * (ABNORMAL) LIPID PANEL W REFLEX MEASURED LDL (09/24/2021 11:44 AM CDT) CHOLESTEROL,TOTAL 204(H) 100 - 199 mg/dL 09/24/2021 12:33 PM T [facility] TRIGLYCERIDES 173(H) <150 mg/dL 09/24/2021 12:33 PM T [facility] HDL CHOLESTEROL 46 >40 mg/dL 12:33 PM T [facility] NON-HDL CHOLESTEROL 158(H) <145 mg/dl 09/24/2021 12:33 PM CDT [facility] CHOL/HDL RATIO 4.43 <4.50 09/24/2021 12:33 PM CDT [facility] LDL CHOLESTEROL 123 <=130 mg/dL 09/24/2021 12:33 PM T [facility] VLDL CHOLESTEROL 35(H) <=30 mg/dL 09/24/2021 12:33 PM CDT [facility] PROVIDER ORDERED STATUS RANDOM 09/24/2021 12:33 PM CDT [facility] Blood BLOOD SPECIMEN / Unknown Venipuncture / Unknown 09/24/2021 11:44 AM CDT 09/24/2021 11:45 AM CDT us Penny Winston MD CHEMISTRY Fin al Result [facility] [address] [place] [address] from Last 3 Months or Most Recently Relevant to Health Maintenance Insurance [facility] Care Teams Voucher Clerk Relationship Specialty Start Date End Date Penny Winston MD [address] [place] [address] PCP - General Family Practice 10/06/21
== END 2024-08-27 13:26 | disposition home or self-care (01) ==
PROVIDERS: Emergency Provider Family Medicine; PCP Family Medicine
DX: G43.909 Migraine, unspecified, not intractable, without status migrainosus (principal); F41.9 Anxiety disorder, unspecified
CPT/HCPCS: 96374; 96375; 99284; J1200; J1885; J2060; J2765; J7030

== ENCOUNTER 2025-01-16 00:44 | Emergency (ER) | payer OTHER, SELFPAY ==
--- OUTSIDE RECORDS SUMMARY | 2025-01-16 00:48 | XMS_ITS | Clinical Summary ---
Author Organization [employer] [facility] Address [address] [place] [address] Care Team Providers Care Tromper Name Role Phone Penny Winston MD Primary Care Provi debbie Allergies Active Allergy Reactions Criticality Noted Date Comments Tramadol Hives,Itching 05/22/2013 Medications medication order composer Sugar Merary twice daily 0 2 Active aspirin (ECOTRIN) 81 mg enteric coated tablet Take 1 Tablet (81 mg) by mouth once daily with a meal. 0 2 Active sucralfate (CARAFATE) 1 gram tabletIndications:C hronic GERD Take 1 Tablet (1 g) by mouth four times daily before meals and at bedtime. 120 Tablet 4 Active cholecalciferol (VITAMIN D3) 1,000 unit tabletIndications:V itamin D deficiency Take 1 Tablet (1,000 units) by mouth once daily. 90 Tablet 3 4 Active fluticasone (50 mcg per actuation) nasal solution (FLONASE)Indication s:Chronic rhinosinusitis Inhale 2 Sprays in both nostrils once daily. 16 g 5 5 Active SUMAtriptan (IMITREX) 50 mg tabletIndications:M igraine syndrome TAKE 1 TABLET BY MOUTH AT ONSET OF HEADACHE NEEDED. MAY REPEAT EVERY 2 HOURS NEEDED. MAX DAILY DOSE IS 4 12 Tablet 5 Active cyclobenzaprine (FLEXERIL) 5 mg tabletIndications:C hronic right SI joint pain Take 1 Tablet (5 mg) by mouth 2 times daily if needed for Muscle Spasm. 60 Tablet 5 Active escitalopram oxalate (LEXAPRO) 20 mg tabletIndications:D epression, unspecified depression type Take 1 Tablet (20 mg) by mouth once daily. 90 Tablet 5 Active pantoprazole (PROTONIX) 40 mg delayed-release tabletIndications:G astroesophageal reflux disease, unspecified whether esophagitis present Take 1 Tablet (40 mg) by mouth once daily. 90 Tablet 5 Active Active Problems Problem Noted Date Diagnosed Date Anxiety 09/24/2021 Depression 09/24/2021 Fatty infiltration of liver 09/24/2021 GERD (gastroesophageal reflux disease) Vitamin D deficiency 09/24/2021 Hx of total hysterectomy wit h removal of both tubes and ovaries 09/24/2021 Premature menopause on HRT 09/24/2021 Cervical radiculopathy due to intervertebral dis c disorder 02/26/2015 Gastrointestinal hemorrhage Resolved Problems Problem Noted Date Diagnosed Date Resolved Date Tubal ligation status 09/24/20212022 Encounters Date Type Department Care Team Description 12/08/2024 3:30 PM CDT Office Visit [address] [phone] Abby Cid MD Back Pain (lower back; been going on for a couple weeks; pain gets so bad that she gets sick to her stomach; sharp pain; feels a large knot; she states it feels like someone is squeezing onto her spine ); Medication Management (needs refills ) 12/08/2024 Travel 12/04/[address] [phone] Penny Winston MD Refill Request (Escitalopram, cyclobenzaprine, sumatriptan) from Last 3 Months Immunizations Immunization Administration Dates Next Due COVID-19 [...] Answer Date Recorded PHQ-2 TOTAL SCORE 4 12/08/2024 Social Connections Answer Date Recorded Do you [...] on file Legal Sex Female 1:18 PM FENCE BUILDER Gender Identity Not on file Sexual Orientation Not on file Occupation Industry Job Start Date Job End Date [employer] Not on file Not on file Not on file Obstetrics History Last Filed Vital Signs Vital Sign Reading Time Taken Comments Blood Pressure 124/72 12/08/2024 3:29 PM CDT Pulse 67 12/08/2024 3:29 PM CDT Temperature 36.7 C (98.1 F) 10/22/2022 7:38 AM CDT Respiratory Rate 14 07/13/2023 10:4 8 AM FENCE BUILDER Oxygen Saturation 98% 12/08/2024 3:29 PM CDT Inhaled Oxygen Concentration - - Weight 80.2 kg (176 lb 11.2 oz) 12/08/2024 3:29 PM CDT Height 167.6 cm (5' 6) 09/07/2024 8:58 AM CDT Body Mass Index 28.52 09/07/2024 8:58 AM CDT Plan of Treatment Upcoming Encounters Date Type Department Care Team (Late st Contact Info) Description 02/12/2025 2:25 PM CDT Office Visit [facility] [address] [place] [address] Penny Winston MD [address] [place] [address] Health Maintenance Due Date Last Done Comments HIV for age 15-65 1985 Hepatitis C screening for ag e 18-79 1988 Hepatitis B series for 19+ ( 1 of 3 - 19+ 3-dose series) 1989 Mammogram for age 45-75 10/22/2015 Pneumococcal series for age 50+ (1 of 1 - PCV) 2020 Zoster (shingles) series for age 50+ (1 of 2) 2020 COVID-19 vaccine series ( season) 2024 07/13/2023, 08/31/2020, 08/10/2020 Influenza Vaccine (#1) 2025 07/13/2023, 2020 BMI (ht and wt on same day) for age 18+ 09/07/2025 09/07/2024, 03/13/2022, 01/06/2022, Additional history exists Depression screening for age 12+ 12/08/2025 12/08/2024, 09/07/2024, 03/10/2023, Additional history exists Lipids for age 45-75 09/24/2026 09/24/2021 Colonoscopy through age 75 04/22/2032 04/22/2022 Tetanus booster 06/25/2033 06/25/2023, 08/23, 09/17/2015 Procedures Procedure Name Priority Date/Time Associated Diagnosis Comments COLONOSCOPY 04/22/2022 12:33 PM FENCE BUILDER LIPID PANEL W REFLEX MEASURED LDL Routine 09/24/2021 11:44 AM CDT Chest pain on exertion Family history of early CAD from Last 3 Months or Most Recently Relevant to Health Maintenance Results * COLONOSCOPY (04/22/2022 12:33 PM FENCE BUILDER) 04/22/2022 12:3 3 PM FENCE BUILDER Narrative Transcriptions Brenda De Leon DO - [...] adequate candidate for conscious sedation. The endoscope [id number] was passed through the anus andadvanced to [...] electronically. Note Initiated On: 04/22/2022 12:33 PM Brenda De Leon DO PROCEDURE ORD Final Res ult * (ABNORMAL) LIPID PANEL W REFLEX MEASURED LDL (09/24/2021 11:44 AM T) CHOLESTEROL,TOTAL 204(H) 100 - 199 mg/dL 09/24/2021 12:33 PM [facility] TRIGLYCERIDES 173(H) <150 mg/dL 09/24/2021 12:33 PM [facility] HDL CHOLESTEROL 46 >40 mg/dL 12:33 PM [facility] NON-HDL CHOLESTEROL 158(H) <145 mg/dl 09/24/2021 12:33 PM [facility] CHOL/HDL RATIO 4.43 <4.50 09/24/2021 12:33 PM [facility] LDL CHOLESTEROL 123 <=130 mg/dL 09/24/2021 12:33 PM [facility] VLDL CHOLESTEROL 35(H) <=30 mg/dL 09/24/2021 12:33 PM [facility] PROVIDER ORDERED STATUS RANDOM 09/24/2021 12:33 PM [facility] Blood BLOOD SPECIMEN / Unknown Venipuncture / Unknown 09/24/2021 11:44 AM CDT 09/24/2021 11:45 AM CDT us Penny Winston MD CHEMISTRY Fin al Result [facility] [address] [place] [address] from Last 3 Months or Most Recently Relevant to Health Maintenance Care Teams Tromper Relationship Specialty Start Date End Date Penny Winston MD [address] [place] [address] PCP - General Family Practice 10/06/21
[2025-01-16 00:50] VITALS: BP 119/75; PULSE 66; RESP 18; TEMP 35.6; O2SAT 99; BMI 28.5
[2025-01-16 00:54] LABS: Appearance Urine Cloudy (Clear)
--- NOTE | 2025-01-16 01:04 | ED.GENADULT ---
HPI - General Adult General Date Seen: 01/16/25 Chief complaint: Abdominal Pain Stated complaint: lower ab pain/poss UTI Time Seen by Provider: 01/16/25 00:59 Source: patient Mode of arrival: ambulatory Limitations: no limitations History of Present Illness HPI narrative: Patient is a 54-year-old female presenting to the emergency department for concern of a possible UTI. States it has been years since she has had a UTI before and does not remember if it previously felt like this. Pain started around 16:00. Has been having suprapubic pain along with polyuria and dysuria. Denies similar symptoms in the past. Denies pain anywhere else. Has not had any chest pain or shortness of breath. Denies fevers or chills. Has had some mild nausea but denies any emesis. No previous abdominal surgeries. Denies any other medical issues. No other concerns noted. Has been able eat and drink without issues. Has been having normal bowel movements. Related Data Home Medications ?Medication ?Instructions ?Recorded ?Confirmed cholecalciferol (vitamin D3) 25 25 mcg PO DAILY 04/21/23 04/21/23 mcg (1,000 unit) tablet cyclobenzaprine 5 mg tablet 5 mg PO BID PRN muscle spasm 04/21/23 04/21/23 escitalopram oxalate 20 mg tablet 20 mg PO DAILY 04/21/23 04/21/23 fluticasone propionate 50 1 spray intranasal DAILY 04/21/23 04/21/23 mcg/actuation nasal spray,suspension pantoprazole 40 mg tablet,delayed 40 mg PO DAILY 04/21/23 04/21/23 release sumatriptan succinate 50 mg tablet mg PO 04/21/23 Previous Rx's ?Medication ?Instructions ?Recorded doxycycline hyclate 100 mg capsule 100 mg PO BID 7 days #14 caps 04/21/23 methylprednisolone 4 mg tablets in See Rx Instructions PO .COMPLEX 04/21/23 a dose pack (Medrol (Christo)) #21 ea amoxicillin 875 mg-potassium 1 tab PO BID 7 days #14 tabs 06/25/23 clavulanate 125 mg tablet indomethacin 50 mg capsule 50 mg PO TID #20 caps 11/15/23 nitrofurantoin 100 mg PO Q12H 5 days #10 caps 01/16/25 monohydrate/macrocrystals 100 mg capsule (Macrobid) Allergies Allergy/AdvReac Type Severity Reaction Status Date / Time tramadol Allergy Verified 04/21/23 13:08 Review of Systems Status of ROS: Reports: 10 or more systems reviewed and unremarkable except as noted in History and below [facility] Social History Smoking Status: Smoker, status unknown Do you use any of these nicotine containing products: None Second hand tobacco smoke exposure: Yes How often do you have a drink containing alcohol: never How often do you have six or more drinks on one occasion: Never AUDIT-C Alcohol total score: 0 Non-prescribed substance use: denies use service: No Exam Narrative: Exam Narrative: Const: Well-nourished, Well-developed, in mild distress Eyes: PERRL, no conjunctival injection, and symmetrical lids HENT: Atraumatic external nose and ears. Moist mucous membranes. Neck: Symmetric, trachea midline, No thyromegaly. CVS: RRR, No murmurs or gallops. Peripheral pulses 2+ and equal in all extremities RESP: Unlabored respiratory effort. Clear to auscultation bilaterally. GI: Suprapubic tenderness, Nondistended, No rebound or guarding. MSK:Extremities w/o deformity, Normal Active ROM Skin: Warm, Dry. No rashes or lesions. Neuro: Normal Muscle tone, No focal neurological deficits. Psych: Awake, Alert, & Oriented x3. Appropriate mood and affect. Const: Vital Signs, click to edit/add: Vital Signs - 24 hr 01/16/25 00:50 Temperature 96.0 F L Pulse Rate [Left P ulse Oximeter] 66 Respiratory Rate 18 Blood Pressure [Ri ght Upper Arm] 119/75 Pulse Oximetry 99 Oxygen Delivery Me thod Room Air Course Vital Signs Vital signs: Initial Vital Signs Temperature 96.0 F L 01/16/25 00:50 Temperature Source Temporal Artery Scan 01/16/25 00:50 Pulse Rate 66 01/16/25 00:50 Pulse Rhythm Regular 01/16/25 00:50 Respiratory Rate 18 01/16/25 00:50 Blood Pressure 119/75 01/16/25 00:50 Blood Pressure Mean 89 01/16/25 00:50 Blood Pressure Position Sitting 01/16/25 00:50 Pulse Oximetry 99 01/16/25 00:50 Oxygen Delivery Method Room Air 01/16/25 00:50 Vital Signs Temperature 96.0 F L 01/16/25 00:50 Pulse Rate 66 01/16/25 00:50 Respiratory Rate 18 01/16/25 00:50 Blood Pressure 119/75 01/16/25 00:50 Pulse Oximetry 99 01/16/25 00:50 Oxygen Delivery Method Room Air 01/16/25 00:50 Temperature 96.0 F L 01/16/25 00:50 Pulse Rate 66 01/16/25 00:50 Respiratory Rate 18 01/16/25 00:50 Blood Pressure 119/75 01/16/25 00:50 Pulse Oximetry 99 01/16/25 00:50 Oxygen Delivery Method Room Air 01/16/25 00:50 Medical Decision Making MDM Narrative Medical decision making narrative: Patient is a 54-year-old female presenting to the emergency department for concerns of a UTI. She mention and triage right lower quadrant pain but on my exam pain was suprapubic. Urine was taking in triage and shows a clear UTI. This is likely the source of all of her symptoms. Overall she is doing well and does not meets SIRS criteria. No other symptoms I do not believe further workup is necessary. Will discharge her home with antibiotics. Will give her dose before discharge. She is not having any allergies to antibiotics. Will start her on Macrobid. Lab Data Labs: Lab Results 01/16/25 Range/Units 00:47 Urine Color Yellow (Yellow) Urine Appearance Cloudy A (Clear) Urine pH 6.5 (5.0-8.5) Ur Specific [place] >= 1.030 (1.000-1.030) Urine Protein 2+ A (Negative) Urine Glucose (UA) Negative (Negative) Urine Ketones Negative (Negative) Urine Blood 3+ A (Negative) Urine Nitrite Positive A (Negative) Urine Bilirubin Negative (Negative) Urine Urobilinogen 1.0 (0.2-1.0) Ur Leukocyte Esterase 3+ A (Negative) Urine RBC 25-50 A (0-2) Urine WBC 5-10 A (0-5) Ur Squamous Epith Cells Moderate A (None-Few) Amorphous Sediment Few A (None) Urine Bacteria Moderate A (None) Discharge Plan Discharge Clinical Impression: Acute lower UTI Patient Disposition: Home, Self-Care Condition: Stable Instructions: Urinary Tract Infection in Women (DC) Additional Instructions: Take the antibiotics as prescribed. Take Tylenol and ibuprofen as needed for pain. Please return to the emergency department for new or worsening symptoms. Prescriptions: New nitrofurantoin monohyd/m-cryst [Macrobid] 100 mg capsule 100 mg PO Q12H 5 Days Qty: 10 0RF Rx Instructions: must administer with a meal/food No Action sumatriptan succinate 50 mg tablet PO pantoprazole 40 mg tablet,delayed release (DR/EC) 40 mg PO DAILY fluticasone propionate 50 mcg/actuation spray,suspension 1 spray INTRANASAL DAILY escitalopram oxalate 20 mg tablet 20 mg PO DAILY cyclobenzaprine 5 mg tablet 5 mg PO BID PRN (Reason: muscle spasm) cholecalciferol (vitamin D3) 25 mcg (1,000 unit) tablet 25 mcg PO DAILY methylprednisolone [Medrol (Christo)] 4 mg tablets,dose pack See Rx Instructions .ROUTE .COMPLEX Qty: 21 0RF Rx Instructions: orally per package directions doxycycline hyclate 100 mg capsule 100 mg PO BID 7 Days Qty: 14 0RF amoxicillin-pot clavulanate 875-125 mg tablet 1 tab PO BID 7 Days Qty: 14 0RF indomethacin 50 mg capsule 50 mg PO TID Qty: 20 0RF Rx Instructions: administer with food or milk. Start taking 3 times per day and then wean off as pain improves. Follow Up/Referrals: Penny Winston MD [Primary Care Provider, Family Practice] Stand Alone Forms: [facility] Info Instructions
[2025-01-16] MEDS: NITROFURANTOIN MONOHYD MACRO 100 MG CAPSULE PO (01:21)
[2025-01-16 01:39] VITALS: BP 123/65; PULSE 69; RESP 18
== END 2025-01-16 01:41 | disposition home or self-care (01) ==
PROVIDERS: Emergency Provider Student in an Organized Health Care Education/Training Program; PCP Family Medicine
DX: N39.0 Urinary tract infection, site not specified (principal)
CPT/HCPCS: 81001; 87086; 99283; A9270

== ENCOUNTER 2025-03-26 15:15 | Emergency (ER) | payer OTHER, SELFPAY ==
--- OUTSIDE RECORDS SUMMARY | 2025-03-26 15:18 | XMS_ITS | Clinical Summary ---
Author Organization [employer] Address [address] [place] [id number] Care Team Providers Care Automotive Quality Manager Name Role Phone Penny Winston MD Primary [...] on file Legal Sex Female 1:18 PM CHIEF DISPATCHER SERVICE Gender Identity Not on file Sexual Orientation Not on file Occupation Industry Job Start Date Job End Date [employer] Not on file Not on file Not on file Obstetrics History Last Filed Vital Signs Vital Sign Reading Time Taken Comments Blood Pressure 124/72 12/08/2024 3:29 PM CDT Pulse 67 12/08/2024 3:29 PM CDT Temperature 36.7 C (98.1 F) 10/22/2022 7:38 AM CDT Respiratory Rate 14 07/13/2023 10:4 8 AM CHIEF DISPATCHER SERVICE Oxygen Saturation 98% 12/08/2024 3:29 PM CDT Inhaled Oxygen Concentration - - Weight 80.2 kg (176 lb 11.2 oz) 12/08/2024 3:29 PM CDT Height 167.6 cm (5' 6) 09/07/2024 8:58 AM CDT Body Mass Index 28.52 09/07/2024 8:58 AM CDT Plan of Treatment Health Maintenance [...] for age 50+ (1 of 2) 2020 Influenza Vaccine (#1) 2025 07/13/2023, 2020 BMI (ht and wt on same day) for age 18+ 09/07/2025 09/07/2024, 03/13/2022, 01/06/2022, Additional history exists Depression screening for age 12+ 12/08/2025 12/08/2024, 09/07/2024, 03/10/2023, Additional history exists Lipids for age 45-75 09/24/2026 09/24/2021 Colonoscopy through age 75 04/22/2032 04/22/2022 Tetanus booster 06/25/2033 06/25/2023, 08/23, 09/17/2015 RSV vaccine for adults or (1 - 1-dose 75+ series) 2045 Procedures Procedure Name Priority Date/Time Associated Diagnosis Comments COLONOSCOPY 04/22/2022 12:33 PM CHIEF DISPATCHER SERVICE LIPID PANEL W REFLEX MEASURED LDL Routine 09/24/2021 11:44 AM CDT Chest pain on exertion Family history of early CAD from Last 3 Months or Most Recently Relevant to Health Maintenance Results * COLONOSCOPY (04/22/2022 12:33 PM CHIEF DISPATCHER SERVICE) 04/22/2022 12:3 3 PM CHIEF DISPATCHER SERVICE Narrative Transcriptions Brenda De Leon DO - [...] adequate candidate for conscious sedation. The endoscope [id number] was passed through the anus andadvanced to [...] 100 - 199 mg/dL 09/24/2021 12:33 PM CDT [facility] TRIGLYCERIDES 173(H) <150 mg/dL 09/24/2021 12:33 PM CDT [facility] HDL CHOLESTEROL 46 >40 mg/dL 12:33 PM T [facility] NON-HDL CHOLESTEROL 158(H) <145 mg/dl 09/24/2021 12:33 PM T [facility] CHOL/HDL RATIO 4.43 <4.50 09/24/2021 12:33 PM [facility] LDL CHOLESTEROL 123 <=130 mg/dL 09/24/2021 12:33 PM [facility] VLDL CHOLESTEROL 35(H) <=30 mg/dL 09/24/2021 12:33 PM [facility] PROVIDER ORDERED STATUS RANDOM 09/24/2021 12:33 PM [facility] Blood BLOOD SPECIMEN / Unknown Venipuncture / Unknown 09/24/2021 11:44 AM CDT 09/24/2021 11:45 AM CDT us Penny Winston MD CHEMISTRY Fin al Result [facility] [address] [place] [address] from Last 3 Months or Most Recently Relevant to Health Maintenance Care Teams Automotive Quality Manager Relationship Specialty Start Date End Date Penny Winston MD [address] [place] [address] PCP - General Family Practice 10/06/21
[2025-03-26 15:26] VITALS: BP 117/73; PULSE 61; RESP 18; TEMP 36.2; O2SAT 99
--- NOTE | 2025-03-26 17:36 | ED.BACK ---
HPI - Back Pain/Injury General Time Seen by Provider: 17:36 Date Seen: 03/26/25 Chief Complaint: Back Injury/Pain Stated Complaint: fell yesterday and hurt back Time Seen by Provider: 03/26/25 17:36 Source: patient, RN notes reviewed and old records reviewed Mode of arrival: ambulatory Limitations: no limitations History of Present Illness HPI Narrative: Narda is a very pleasant 54-year-old female with history of GI issues on a PPI, history of migraine who comes to the emergency room for evaluation after a fall. Patient was noted to be working at the [employer] in [place]. Yesterday she went outside to assist some customers and as she was stepping up onto a curb her foot slipped. She fell forward onto her left knee and outstretched wrist. She did not have significant pain yesterday and declined to fill out an incident report as suggested by her boss. However, today she has much more discomfort throughout her entire body and thus came for evaluation to the ER. She states that she has contacted her physician. Patient notes that when she fell she thinks that she adriana both arms up into her shoulders. She is presenting with arm pain, wrist pain, back pain both thoracic and lower. She also has pain on her left knee and an abrasion there as well. She denies hitting her head and she has no neck pain. Movement increases her discomfort. She was unable to go to work today. Related Data Home Medications ?Medication ?Instructions ?Recorded ?Confirmed cholecalciferol (vitamin D3) 25 25 mcg PO DAILY 04/21/23 04/21/23 mcg (1,000 unit) tablet cyclobenzaprine 5 mg tablet 5 mg PO BID PRN muscle spasm 04/21/23 04/21/23 escitalopram oxalate 20 mg tablet 20 mg PO DAILY 04/21/23 04/21/23 fluticasone propionate 50 1 spray intranasal DAILY 04/21/23 04/21/23 mcg/actuation nasal spray,suspension pantoprazole 40 mg tablet,delayed 40 mg PO DAILY 04/21/23 04/21/23 release sumatriptan succinate 50 mg tablet mg PO 04/21/23 Previous Rx's ?Medication ?Instructions ?Recorded doxycycline hyclate 100 mg capsule 100 mg PO BID 7 days #14 caps 04/21/23 methylprednisolone 4 mg tablets in See Rx Instructions PO .COMPLEX 04/21/23 a dose pack (Medrol (Christo)) #21 ea amoxicillin 875 mg-potassium 1 tab PO BID 7 days #14 tabs 06/25/23 clavulanate 125 mg tablet indomethacin 50 mg capsule 50 mg PO TID #20 caps 11/15/23 nitrofurantoin 100 mg PO Q12H 5 days #10 caps 01/16/25 monohydrate/macrocrystals 100 mg capsule (Macrobid) Allergies Allergy/AdvReac Type Severity Reaction Status Date / Time tramadol Allergy Verified 03/26/25 15:26 Review of Systems Status of ROS: Reports: 6 or more systems reviewed and unremarkable except as noted in History and below Const: Denies: fever or fatigue Eyes: Denies: change in vision ENMT: Denies: neck pain Cardio: Denies: chest pain, lightheadedness or shortness of breath with exertion Resp: Denies: shortness of breath GI: Denies: abdominal pain or vomiting Musculo: Reports: back pain and extremity pain; Denies: neck pain Neuro: Denies: headache Endo: Denies: fatigue PFSH PFSH Social History Smoking Status: Smoker, status unknown Do you use any of these nicotine containing products: None Second hand tobacco smoke exposure: Yes How often do you have a drink containing alcohol: never How often do you have six or more drinks on one occasion: Never AUDIT-C Alcohol total score: 0 Non-prescribed substance use: denies use service: No Exam Narrative: Exam Narrative: Alert and oriented. Nontoxic in appearance. Face symmetrical EOM is full. Mentation and speech normal. Neck is supple with no midline cervical tenderness, no guarding and full range of motion. Palpation down the thoracic spine shows increased hypersensitivity palpation response at approximately T8 through T11 as well as the lumbar spine. She has discomfort in the soft tissue around the right trapezial body as well as over the right ribcage. No crepitus is noted. Heart with regular rate and rhythm. Initially decreased breath sounds with crackles in the right lower lung that cleared with deep inspiration. On the wrist she has a superficial scratch on the lateral aspect of both wrists. No snuffbox tenderness. She is noting that she has decreased sensation in the wrists I do note fine motor is intact. I do not note any guarding of upper extremity movement. Examination of the left knee shows a half dollar size area of abrasion without significant erythema. She is able to ambulate on this leg but it does appear to cause her discomfort. Const: Vital Signs, click to edit/add: Vital Signs - 24 hr 03/26/25 15:26 Temperature 97.2 F L Pulse Rate [Pulse Oximeter] 61 Respiratory Rate 18 Blood Pressure [Ri ght Upper Arm] 117/73 Pulse Oximetry 99 Oxygen Delivery Me thod Room Air Documenting provider has reviewed patient's vital signs: yes Course Course ED Course: Patient is presenting after a fall yesterday with increased pain today. While this most likely represents soft tissue discomfort pain appears to be out of proportion to exam and therefore do feel we should rule out any underlying fracture. Have ordered x-rays of bilateral wrist, thoracic and lumbar and left knee. Patient is in agreement with this plan. Reevaluation(s) Reevaluation #1: Patient remained stable while she was in the emergency room. Vital Signs Vital signs: Initial Vital Signs Temperature 97.2 F L 03/26/25 15:26 Temperature Source Temporal Artery Scan 03/26/25 15:26 Pulse Rate 61 03/26/25 15:26 Respiratory Rate 18 03/26/25 15:26 Blood Pressure 117/73 03/26/25 15:26 Blood Pressure Mean 87 03/26/25 15:26 Pulse Oximetry 99 03/26/25 15:26 Oxygen Delivery Method Room Air 03/26/25 15:26 Vital Signs Temperature 97.2 F L 03/26/25 15:26 Pulse Rate 61 03/26/25 15:26 Respiratory Rate 18 03/26/25 15:26 Blood Pressure 117/73 03/26/25 15:26 Pulse Oximetry 99 03/26/25 15:26 Oxygen Delivery Method Room Air 03/26/25 15:26 Temperature 97.2 F L 03/26/25 15:26 Pulse Rate 61 03/26/25 15:26 Respiratory Rate 18 03/26/25 15:26 Blood Pressure 117/73 03/26/25 15:26 Pulse Oximetry 99 03/26/25 15:26 Oxygen Delivery Method Room Air 03/26/25 15:26 MDM - Back Pain/Injury MDM Narrative Medical decision making narrative: 1. Fall -No prodromal symptoms. Fortunately no evidence of fractures on thoracolumbar images, wrist images or left knee. Dedicated images to thoracic spine show no evidence of fracture. 2. Soft tissue injury -Suggest alternating ibuprofen and Tylenol as needed for discomfort. Have also given her prescription for Flexeril 10 mg 1 tab p.o. t.i.d. p.r.n. muscle spasm 15. No refills through our [facility] med[facility] machine. Would also recommend icing. 3. Disposition -Home at this time. Return for worsening symptoms. Did discuss re x-raying wrist if they should still cause her pain. No evidence of snuffbox tenderness tonight. She declines a note for work stating that she is off tomorrow. She will return as needed. Medical Records Attestation: I reviewed the patient's medical records. Imaging Data thoracolumbar x-ray: Attestation: I have reviewed the pertinent imaging results. My impression: I do not note any acute fractures of this x-ray. However, it does not show T8-T9 which would be of interest to me. Will order dedicated thoracic films. Radiologist's impression: Bone: No acute fractures or aggressive bone lesions are identified. Alignment is normal. Disc: The disc spaces are unremarkable in appearance. The facet joints are unremarkable. Soft tissue: Unremarkable. No radiopaque foreign bodies are seen. IMPRESSION: 1. No acute osseous injuries are noted. wrist x-ray: Attestation: I have reviewed the pertinent imaging results. My impression: By my read no evidence of fracture in either wrist. Radiologist's impression: Left Wrist : Bone: No acute fractures or aggressive bone lesions are identified. Joint: The radiocarpal, carpal, and carpometacarpal joints are unremarkable in appearance. Soft tissue: Unremarkable. No radiopaque foreign bodies are seen. IMPRESSION: 1. No acute osseous injuries are noted. Right Wrist : Bones: Alignment is normal. No fractures or bone lesions. Joint spaces: Unremarkable. Soft tissues: Unremarkable. Impression: No acute fracture. If there is point tenderness of the scaphoid, consider repeat radiograph in 7-10 days. left knee x-ray: Attestation: I have reviewed the pertinent imaging results. My impression: By my read no acute fractures. Radiologist's impression: Bone: No acute fractures or aggressive bone lesions are identified. Joint: The medial, lateral, and patellofemoral compartments are unremarkable. No significant knee effusion is seen. Soft tissue: Unremarkable. No radiopaque foreign bodies are seen. IMPRESSION: 1. No acute osseous injuries are noted. Thoracic x-ray: Attestation: I have reviewed the pertinent imaging results. My impression: No obvious fractures by my read. Radiologist's impression: Minimal right-sided curvature of the thoracic spine, similar to previous x-ray. No acute fracture or significant vertebral wedging compression. No anterolisthesis. Multilevel mild degenerative changes with reduction of disc height and scattered osteophyte as well as facet arthropathy. Discharge Plan Discharge Clinical Impression: Fall Qualifiers: Encounter type: initial encounter Qualified Code(s): W19.XXXA - Unspecified fall, initial encounter Soft tissue injury of hand Qualifiers: Encounter type: initial encounter Laterality: unspecified laterality Qualified Code(s): S69.90XA - Unspecified injury of unspecified wrist, hand and finger(s), initial encounter Soft tissue injury of knee Qualifiers: Encounter type: initial encounter Laterality: left Qualified Code(s): S89.92XA - Unspecified injury of left lower leg, initial encounter Back pain Qualifiers: Back pain location: back pain in unspecified location Chronicity: acute Back pain laterality: bilateral Qualified Code(s): M54.9 - Dorsalgia, unspecified Patient Disposition: Home, Self-Care Condition: Unchanged Additional Instructions: Fortunately we do not detect any fractures on today's x-rays. However, should you have ongoing pain please follow-up with your primary clinic. Alternate ibuprofen and Tylenol as needed for discomfort. Ice as needed. Flexeril can be obtained from our [employer] machine. This is a muscle relaxer. Please to not use alcohol nor drive with this medication or take it with any other sleep inducing medicines. Return as needed. Prescriptions: No Action sumatriptan succinate 50 mg tablet PO pantoprazole 40 mg tablet,delayed release (DR/EC) 40 mg PO DAILY fluticasone propionate 50 mcg/actuation spray,suspension 1 spray INTRANASAL DAILY escitalopram oxalate 20 mg tablet 20 mg PO DAILY cyclobenzaprine 5 mg tablet 5 mg PO BID PRN (Reason: muscle spasm) cholecalciferol (vitamin D3) 25 mcg (1,000 unit) tablet 25 mcg PO DAILY methylprednisolone [Medrol (Christo)] 4 mg tablets,dose pack See Rx Instructions .ROUTE .COMPLEX Qty: 21 0RF Rx Instructions: orally per package directions doxycycline hyclate 100 mg capsule 100 mg PO BID 7 Days Qty: 14 0RF amoxicillin-pot clavulanate 875-125 mg tablet 1 tab PO BID 7 Days Qty: 14 0RF indomethacin 50 mg capsule 50 mg PO TID Qty: 20 0RF Rx Instructions: administer with food or milk. Start taking 3 times per day and then wean off as pain improves. nitrofurantoin monohyd/m-cryst [Macrobid] 100 mg capsule 100 mg PO Q12H 5 Days Qty: 10 0RF Rx Instructions: must administer with a meal/food Follow Up/Referrals: Penny Winston MD [Primary Care Provider, Family Practice] Stand Alone Forms: MyHealth Info Instructions
--- NOTE | 2025-03-26 17:44 | CRLHL7_ITS ---
For Patients: As a result of the Cures Act, medical imaging exams and procedure reports are released immediately into your electronic medical record. You may view this report before your referring provider. If you have questions, please contact your health care provider. INDICATION: Wrist injury from Fall on outstretched hand TECHNIQUE: Wrist radiograph 3 views left COMPARISON: None FINDINGS: Bone: No acute fractures or aggressive bone lesions are identified. Joint: The radiocarpal, carpal, and carpometacarpal joints are unremarkable in appearance. Soft tissue: Unremarkable. No radiopaque foreign bodies are seen. IMPRESSION: 1. No acute osseous injuries are noted. Dictated by: Stepan Pat MD @ 03/26/2025 19:00:29 (Electronically Signed)
--- NOTE | 2025-03-26 17:44 | CRLHL7_ITS ---
For Patients: As a result of the Cures Act, medical imaging exams and procedure reports are released immediately into your electronic medical record. You may view this report before your referring provider. If you have questions, please contact your health care provider. Indication: Injury and pain. FOOSH. Technique: Right wrist 3 view. Comparison: None. Findings: Bones: Alignment is normal. No fractures or bone lesions. Joint spaces: Unremarkable. Soft tissues: Unremarkable. Impression: No acute fracture. If there is point tenderness of the scaphoid, consider repeat radiograph in 7-10 days. Dictated by Ryan Caban MD @ 03/26/2025 7:02:32 PM (Electronically Signed)
--- NOTE | 2025-03-26 17:44 | CRLHL7_ITS ---
For Patients: As a result of the Cures Act, medical imaging exams and procedure reports are released immediately into your electronic medical record. You may view this report before your referring provider. If you have questions, please contact your health care provider. INDICATION: Fall on left knee TECHNIQUE: Knee radiograph 3 views left COMPARISON: 02/10/2021 FINDINGS: Bone: No acute fractures or aggressive bone lesions are identified. Joint: The medial, lateral, and patellofemoral compartments are unremarkable. No significant knee effusion is seen. Soft tissue: Unremarkable. No radiopaque foreign bodies are seen. IMPRESSION: 1. No acute osseous injuries are noted. Dictated by: Stepan Pat MD @ 03/26/2025 19:00:06 (Electronically Signed)
--- NOTE | 2025-03-26 17:44 | CRLHL7_ITS ---
For Patients: As a result of the Century Cures Act, medical imaging exams and procedure reports are released immediately into your electronic medical record. You may view this report before your referring provider. If you have questions, please contact your health care provider. INDICATION: Lumbar spine Pain at L1-3 and post fall TECHNIQUE: Lumbar spine radiograph 2 views COMPARISON: 01/10/2019 FINDINGS: Bone: No acute fractures or aggressive bone lesions are identified. Alignment is normal. Disc: The disc spaces are unremarkable in appearance. The facet joints are unremarkable. Soft tissue: Unremarkable. No radiopaque foreign bodies are seen. IMPRESSION: 1. No acute osseous injuries are noted. Dictated by: Stepan Pat MD @ 03/26/2025 19:01:13 (Electronically Signed)
--- NOTE | 2025-03-26 18:27 | CRLHL7_ITS ---
For Patients: As a result of the Century Cures Act, medical imaging exams and procedure reports are released immediately into your electronic medical record. You may view this report before your referring provider. If you have questions, please contact your health care provider. INDICATION: Pain, T8, 9 and 10 TECHNIQUE: Thoracic spine 3 view. COMPARISON: X-ray thoracic spine December 2018 FINDINGS/IMPRESSION: Minimal right-sided curvature of the thoracic spine, similar to previous x-ray. No acute fracture or significant vertebral wedging compression. No anterolisthesis. Multilevel mild degenerative changes with reduction of disc height and scattered osteophyte as well as facet arthropathy. Dictated by Jacques Estevez MD @ 03/26/2025 7:39:48 PM (Electronically Signed)
== END 2025-03-26 19:23 | disposition home or self-care (01) ==
LOC: ED 18:15
PROVIDERS: Emergency Provider Family Medicine; PCP Family Medicine
DX: S69.92XA Unspecified injury of left wrist, hand and finger(s), initial encounter (principal); S69.91XA Unspecified injury of right wrist, hand and finger(s), initial encounter; S89.92XA Unspecified injury of left lower leg, initial encounter; M54.6 Pain in thoracic spine; W10.1XXA Fall (on)(from) sidewalk curb, initial encounter; Y92.524 Gas station as the place of occurrence of the external cause; Y99.0 Civilian activity done for income or pay
CPT/HCPCS: 72070; 72080; 73110; 73562; 99284

== ENCOUNTER 2025-04-23 15:03 | Outpatient (CLI) | payer MEDICAID, SELFPAY | END 2025-04-23 15:04 | disposition home or self-care (01) | PROVIDERS: PCP Family Medicine; Visit Provider Family Medicine | DX: R10.11 Right upper quadrant pain (principal); R11.2 Nausea with vomiting, unspecified; R53.83 Other fatigue | CPT/HCPCS: 80053; 83690; 86140 ==